=== PATIENT | female | born 1955 | race Caucasian/White ===

== ENCOUNTER → 2016-06-26 | Outpatient (CLI) | payer BC, OTHER ==
[~2016-06-26] MED LIST: ATEN25TA OR; CALCIUM/VITAMIN D PO; FIBER THERAPY PO; FISH; FISHCAP PO; HYDR25TA6 OR; MAGN500T2 OR; MAGNESIUM; MAGNESIUM PO; MULTIVIT PO; POTA99TA OR; PYRIDOXINE PO; VIT; VITA500T OR; VITACAP31 PO; VITAMIN B 12 PO; VITAMIN D; VITAMIN E PO
[2016-06-26 12:00] LABS: BASO % 0.4 % (0.0-1.0); EOS # 0.3 K/mm3 (0.0-0.50); EOS % 4.2 % (0.0-3.0); LARGE UNSTAINED CELL # 0.1 K/mm3 (0.0-0.4); LARGE UNSTAINED CELL % 1.9 % (0.0-4.0); LYMPH # 1.8 K/mm3 (1.5-4.5); LYMPH % 22.7 % (24.0-44.0); MEAN CORPUSCULAR HEMOGLOBIN 29.6 pg (27.0-33.0); MEAN CORPUSCULAR VOLUME 89.6 fl (80.0-96.0); MONO # 0.4 K/mm3 (0.0-0.8); MONO % 5.5 % (0.0-5.0); NEUTROPHILS # 4.6 K/mm3 (1.8-7.7); NEUTROPHILS % 65.3 % (36.0-66.0); PLATELET COUNT, AUTOMATED 224 k/mm3 (150-450); RED CELL DISTRIBUTION WIDTH 12.4 % (11.5-14.5); WHITE BLOOD COUNT 7.1 K/mm3 (4.0-10.0)
[2016-06-26 12:44] LABS: ALBUMIN/GLOBULIN RATIO 1.43 (1.00-1.93); BILIRUBIN,TOTAL 0.6 MG/DL (0.2-1.0); CALCIUM LEVEL 8.9 MG/DL (8.8-10.2); CREATININE FOR GFR 1.44 MG/DL (0.55-1.02); GLOMERULAR FILTRATION RATE 39.1 (>45); POTASSIUM SERUM 4.8 MEQ/L (3.5-5.1); TOTAL PROTEIN 6.8 GM/DL (6.4-8.2)
== END ==
LOC: M SMT 09:12
PROVIDERS: ATTEND Family Medicine
DX: I10 Essential (primary) hypertension (principal); E78.5 Hyperlipidemia, unspecified; K21.9 Gastro-esophageal reflux disease without esophagitis

== ENCOUNTER → 2016-07-05 | Outpatient (CLI) | payer BC, OTHER ==
--- NOTE | 2016-07-05 11:44 | REP ---
URINARY TRACT SONOGRAPHY: HISTORY: Chronic kidney disease stage III. Comparison sonography April 12, 2012. This was a right upper quadrant sonogram. FINDINGS: Scanning at the level of the urinary bladder shows that it is empty at the time of scanning. Renal cortical echogenicity pattern is normal and renal contours are smooth bilaterally. There is some increased renal sinus fat bilaterally. No hydronephrosis is seen on either side. No mass, cyst or calculus is seen. Right kidney measures 10.0 x 4.1 x 3.9 cm. Left renal dimensions are 10.1 x 4.9 x 4.7 cm. IMPRESSION: No significant abnormality. Signed by Ion Sabillon MD 07/05/2016 02:37 P
== END ==
LOC: M RAD 09:33
PROVIDERS: ATTEND Physician Assistant
DX: N18.3 Chronic kidney disease, stage 3 (moderate) (principal)

== ENCOUNTER → 2016-07-14 | Outpatient (CLI) | payer BC, OTHER ==
[2016-07-14 11:33] LABS: CREATININE FOR GFR 1.18 MG/DL (0.55-1.02); GLOMERULAR FILTRATION RATE 49.2 (>45); POTASSIUM SERUM 4.4 MEQ/L (3.5-5.1)
== END ==
LOC: M LAB 10:11
PROVIDERS: ATTEND Physician Assistant
DX: N18.3 Chronic kidney disease, stage 3 (moderate) (principal)

== ENCOUNTER → 2016-10-05 | Outpatient (CLI) | payer BC, OTHER ==
[2016-10-05 11:02] LABS: BASO # 0.1 K/mm3 (0.0-0.2); BASO % 1.6 % (0.0-1.0); EOS # 0.2 K/mm3 (0.0-0.50); EOS % 3.3 % (0.0-3.0); LARGE UNSTAINED CELL # 0.1 K/mm3 (0.0-0.4); LARGE UNSTAINED CELL % 1.8 % (0.0-4.0); LYMPH # 1.5 K/mm3 (1.5-4.5); LYMPH % 23.5 % (24.0-44.0); MEAN CORPUSCULAR HEMOGLOBIN 29.6 pg (27.0-33.0); MEAN CORPUSCULAR HGB CONC 33.3 g/dl (32.0-36.5); MONO # 0.3 K/mm3 (0.0-0.8); MONO % 5.3 % (0.0-5.0); NEUTROPHILS # 3.9 K/mm3 (1.8-7.7); NEUTROPHILS % 64.5 % (36.0-66.0); PLATELET COUNT, AUTOMATED 182 k/mm3 (150-450); RED CELL DISTRIBUTION WIDTH 12.5 % (11.5-14.5)
[2016-10-05 11:38] LABS: CALCIUM LEVEL 9.5 MG/DL (8.8-10.2); CREATININE FOR GFR 1.15 MG/DL (0.55-1.02); GLOMERULAR FILTRATION RATE 50.7 (>45); MAGNESIUM LEVEL 2.6 MG/DL (1.8-2.4); POTASSIUM SERUM 5.1 MEQ/L (3.5-5.1)
== END ==
LOC: M LAB 10:13
PROVIDERS: ATTEND Family Medicine
DX: I12.9 Hypertensive chronic kidney disease with stage 1 through stage 4 chronic kidney disease, or unspecified chronic kidney disease (principal); N18.3 Chronic kidney disease, stage 3 (moderate); K21.9 Gastro-esophageal reflux disease without esophagitis; E78.5 Hyperlipidemia, unspecified

== ENCOUNTER → 2016-10-16 | Outpatient (CLI) | payer BC, OTHER ==
--- NOTE | 2016-10-16 09:32 | REP ---
Abdominal aorta ultrasound: Abdominal Aortic Measurements are as follows: Proximal 2.3 cm AP 2.4 cm TRV Renal Artery Level 1.6 cm AP 1.7 cm TRV Mid Aorta 1.5 cm AP 1.7 cm TRV Distal Aorta 1.7 cm AP one 0.7 cm TRV R Iliac Artery 0.9 cm AP 1.0 cm TRV L Iliac Artery 0.8 cm AP 1.1 cm TRV The abdominal aortic measurements are normal. There is no abdominal aortic aneurysm. Signed by Dhaval Bryant MD 10/16/2016 09:24 A
--- NOTE | 2016-10-16 11:08 | REP ---
RENAL NUCLEAR SCAN WITH FLOW AND FUNCTION: Following the intravenous administration of 8.8 mCi of technetium-99m MAG 3 immediate flow images are obtained in the posterior projections showing fairly symmetrical perfusion bilaterally. Delayed renal function images are performed every minute for a period of 30 minutes in the posterior projection. Right kidney appears slightly smaller than the left. There is bilateral excretion with mild dilatation of the right renal pelvis. Split function is 45.5% on the left and 54.5% on right. Time to peak is 2 minutes on the left and 3 minutes on the right. Left kidney demonstrates T1/2 12.3 minutes and right kidney 17.3 minutes. Renal function curves are mildly shallow in their downward slopes. On postvoid images the mild dilatation of the right renal pelvis essentially resolves. There is mild postvoid residual in the urinary bladder after voiding. IMPRESSION: Mildly compromised renal function bilaterally. No evidence of urinary tract obstruction. Signed by Dhaval Dodson MD 10/16/2016 01:13 P
== END ==
LOC: M RAD 08:10
PROVIDERS: ATTEND Internal Medicine Nephrology
DX: N18.3 Chronic kidney disease, stage 3 (moderate) (principal); I15.0 Renovascular hypertension; I71.4 Abdominal aortic aneurysm, without rupture

== ENCOUNTER → 2016-12-14 | Outpatient (REF) | payer OTHER, BC ==
[2016-12-14 14:42] LABS: BACTERIA, URINE NONE SEEN; HYALINE CAST, URINE NONE SEEN /lpf (0-1); MICROSCOPIC EXAM PERFORMED; RBC, URINE NONE SEEN /hpf (0-3); SQUAMOUS EPITHELIAL CELL URINE SMALL AMOUNT /hpf (SMALL AMT); WBC, URINE NONE SEEN /hpf (0-3)
== END ==
LOC: M LAB REF 13:05
PROVIDERS: ATTEND Internal Medicine Nephrology
DX: N18.3 Chronic kidney disease, stage 3 (moderate) (principal)

== ENCOUNTER → 2017-02-28 | Outpatient (CLI) | payer BC, OTHER | LOC: M LAB 10:03 | PROVIDERS: ATTEND Family Medicine | DX: E78.00 Pure hypercholesterolemia, unspecified (principal) ==

== ENCOUNTER → 2017-04-23 | Outpatient (CLI) | payer BC, OTHER ==
[2017-04-23 10:15] LABS: BASO % 0.3 % (0.0-1.0); EOS # 0.1 10^3/uL (0.0-0.50); EOS % 1.6 % (0.0-3.0); HEMATOCRIT 36.4 % (36.0-47.0); HEMOGLOBIN 12.2 g/dl (12.0-16.0); IMMATURE GRANULOCYTE % 0.2 % (0-0); LYMPH # 1.6 10^3/uL (1.5-4.5); LYMPH % 25.7 % (24.0-44.0); MEAN CORPUSCULAR HEMOGLOBIN 28.6 pg (27.0-33.0); MEAN CORPUSCULAR HGB CONC 33.5 g/dl (32.0-36.5); MEAN CORPUSCULAR VOLUME 85.2 fl (80.0-96.0); MONO # 0.5 10^3/uL (0.0-0.8); MONO % 7.4 % (0.0-5.0); NEUTROPHILS # 3.9 10^3/uL (1.8-7.7); NEUTROPHILS % 64.8 % (36.0-66.0); PLATELET COUNT, AUTOMATED 168 10^3/uL (150-450); RED BLOOD COUNT 4.27 10^6/uL (4.00-5.40); RED CELL DISTRIBUTION WIDTH 12.9 % (11.5-14.5); WHITE BLOOD COUNT 6.1 10^3/uL (4.0-10.0)
[2017-04-23 10:52] LABS: ALBUMIN 4.1 GM/DL (3.2-5.2); ALBUMIN/GLOBULIN RATIO 1.46 (1.00-1.93); ALKALINE PHOSPHATASE 75 U/L (45-117); ALT/SGPT 21 U/L (12-78); ANION GAP 8 MEQ/L (8-16); AST/SGOT 19 U/L (7-37); BILIRUBIN,TOTAL 0.6 MG/DL (0.2-1.0); BLOOD UREA NITROGEN 13 MG/DL (7-18); CALCIUM LEVEL 9.3 MG/DL (8.8-10.2); CARBON DIOXIDE LEVEL 30 MEQ/L (21-32); CHLORIDE LEVEL 102 MEQ/L (98-107); CHOLESTEROL LEVEL 143 MG/DL (<200); CHOLESTEROL RISK RATIO 2.014 (<5); CREATININE FOR GFR 1.03 MG/DL (0.55-1.30); GLOMERULAR FILTRATION RATE 57.4 (>45); GLUCOSE, FASTING 93 MG/DL (70-100); HDL CHOLESTEROL 71 MG/DL (>40); LDL CHOLESTEROL 58.8 MG/DL (<100); NON-HDL-C 72 MG/DL; POTASSIUM SERUM 4.6 MEQ/L (3.5-5.1); SODIUM LEVEL 140 MEQ/L (136-145); TOTAL PROTEIN 6.9 GM/DL (6.4-8.2); TRIGLYCERIDES LEVEL 66 MG/DL (<150)
== END ==
LOC: M LAB 09:23
DX: I12.9 Hypertensive chronic kidney disease with stage 1 through stage 4 chronic kidney disease, or unspecified chronic kidney disease (principal)

== ENCOUNTER → 2017-10-24 | Outpatient (CLI) | payer BC, OTHER ==
[2017-10-24 10:26] LABS: ALBUMIN 4.1 GM/DL (3.2-5.2); ALBUMIN/GLOBULIN RATIO 1.52 (1.00-1.93); ALKALINE PHOSPHATASE 86 U/L (45-117); ALT/SGPT 31 U/L (12-78); ANION GAP 7 MEQ/L (8-16); AST/SGOT 27 U/L (7-37); BILIRUBIN,TOTAL 0.7 MG/DL (0.2-1.0); BLOOD UREA NITROGEN 16 MG/DL (7-18); CALCIUM LEVEL 8.8 MG/DL (8.8-10.2); CARBON DIOXIDE LEVEL 32 MEQ/L (21-32); CHLORIDE LEVEL 102 MEQ/L (98-107); CREATININE FOR GFR 1.14 MG/DL (0.55-1.30); GLOMERULAR FILTRATION RATE 51.1 (>45); GLUCOSE, FASTING 89 MG/DL (70-100); POTASSIUM SERUM 4.2 MEQ/L (3.5-5.1); SODIUM LEVEL 141 MEQ/L (136-145); TOTAL PROTEIN 6.8 GM/DL (6.4-8.2)
== END ==
LOC: M LAB 09:17
DX: Z13.29 Encounter for screening for other suspected endocrine disorder (principal)
CPT/HCPCS: 84443

== ENCOUNTER → 2017-11-05 | Outpatient (CLI) | payer BC, OTHER ==
[2017-11-05 14:41] LABS: CHOLESTEROL LEVEL 166 MG/DL (<200); CHOLESTEROL RISK RATIO 1.824 (<5); HDL CHOLESTEROL 91 MG/DL (>40); NON-HDL-C 75 MG/DL; TRIGLYCERIDES LEVEL 60 MG/DL (<150)
== END ==
LOC: M SMT 10:05
DX: E78.00 Pure hypercholesterolemia, unspecified (principal)
CPT/HCPCS: 80061

== ENCOUNTER → 2018-01-23 | Outpatient (CLI) | payer BC, OTHER ==
[2018-01-23 12:31] LABS: BASO % 0.2 % (0.0-1.0); EOS # 0.1 10^3/uL (0.0-0.50); EOS % 1.7 % (0.0-3.0); HEMATOCRIT 38.5 % (36.0-47.0); HEMOGLOBIN 12.7 g/dl (12.0-15.5); IMMATURE GRANULOCYTE % 0.2 % (0-3.0); LYMPH # 1.5 10^3/uL (1.5-4.5); LYMPH % 27.9 % (24.0-44.0); MEAN CORPUSCULAR HEMOGLOBIN 29.2 pg (27.0-33.0); MEAN CORPUSCULAR VOLUME 88.5 fl (80.0-96.0); MONO # 0.5 10^3/uL (0.0-0.8); MONO % 8.7 % (0.0-5.0); NEUTROPHILS # 3.3 10^3/uL (1.8-7.7); NEUTROPHILS % 61.3 % (36.0-66.0); PLATELET COUNT, AUTOMATED 175 10^3/uL (150-450); RED BLOOD COUNT 4.35 10^6/uL (4.00-5.40); RED CELL DISTRIBUTION WIDTH 12.5 % (11.5-14.5); WHITE BLOOD COUNT 5.4 10^3/uL (4.0-10.0)
[2018-01-23 12:56] LABS: ALBUMIN 4.3 GM/DL (3.2-5.2); ALBUMIN/GLOBULIN RATIO 1.48 (1.00-1.93); ALKALINE PHOSPHATASE 84 U/L (45-117); ALT/SGPT 30 U/L (12-78); ANION GAP 9 MEQ/L (8-16); AST/SGOT 23 U/L (7-37); BILIRUBIN,TOTAL 0.8 MG/DL (0.2-1.0); BLOOD UREA NITROGEN 15 MG/DL (7-18); CALCIUM LEVEL 9.2 MG/DL (8.8-10.2); CARBON DIOXIDE LEVEL 28 MEQ/L (21-32); CHLORIDE LEVEL 101 MEQ/L (98-107); CHOLESTEROL LEVEL 159 MG/DL (<200); CHOLESTEROL RISK RATIO 1.962 (<5); CREATININE FOR GFR 1.15 MG/DL (0.55-1.30); GLOMERULAR FILTRATION RATE 50.6 (>45); GLUCOSE, FASTING 98 MG/DL (70-100); HDL CHOLESTEROL 81 MG/DL (>40); LDL CHOLESTEROL 65 MG/DL (<100); NON-HDL-C 78 MG/DL; POTASSIUM SERUM 4.9 MEQ/L (3.5-5.1); SODIUM LEVEL 138 MEQ/L (136-145); TOTAL PROTEIN 7.2 GM/DL (6.4-8.2); TRIGLYCERIDES LEVEL 67 MG/DL (<150)
== END ==
LOC: M SMT 08:04
DX: I12.9 Hypertensive chronic kidney disease with stage 1 through stage 4 chronic kidney disease, or unspecified chronic kidney disease (principal); E78.00 Pure hypercholesterolemia, unspecified
CPT/HCPCS: 80053

== ENCOUNTER → 2018-05-02 | Outpatient (CLI) | payer BC, OTHER ==
[2018-05-02 14:05] LABS: BASO % 0.5 % (0.0-1.0); EOS # 0.1 10^3/uL (0.0-0.50); EOS % 1.5 % (0.0-3.0); HEMATOCRIT 39.2 % (36.0-47.0); HEMOGLOBIN 13.1 g/dl (12.0-15.5); LYMPH # 1.5 10^3/uL (1.5-4.5); LYMPH % 25.9 % (24.0-44.0); MEAN CORPUSCULAR HEMOGLOBIN 29.4 pg (27.0-33.0); MEAN CORPUSCULAR HGB CONC 33.4 g/dl (32.0-36.5); MEAN CORPUSCULAR VOLUME 87.9 fl (80.0-96.0); MONO # 0.4 10^3/uL (0.0-0.8); MONO % 7.4 % (0.0-5.0); NEUTROPHILS # 3.8 10^3/uL (1.8-7.7); NEUTROPHILS % 64.4 % (36.0-66.0); PLATELET COUNT, AUTOMATED 208 10^3/uL (150-450); RED BLOOD COUNT 4.46 10^6/uL (4.00-5.40); WHITE BLOOD COUNT 5.8 10^3/uL (4.0-10.0)
[2018-05-02 14:11] LABS: CREATININE FOR GFR 1.2 MG/DL (0.55-1.30); POTASSIUM SERUM 4.3 MEQ/L (3.5-5.1)
[2018-05-02 14:12] LABS: ALBUMIN 4.5 GM/DL (3.2-5.2); BILIRUBIN,TOTAL 0.7 MG/DL (0.2-1.0); CHOLESTEROL RISK RATIO 1.875 (<5); TOTAL PROTEIN 7.2 GM/DL (6.4-8.2)
[2018-05-02 14:29] LABS: HEMOGLOBIN A1c 5.4 %
== END ==
LOC: M SMT 08:48
PROVIDERS: ATTEND Physician Assistant
DX: I12.9 Hypertensive chronic kidney disease with stage 1 through stage 4 chronic kidney disease, or unspecified chronic kidney disease (principal); N18.9 Chronic kidney disease, unspecified

== ENCOUNTER → 2018-05-10 | Outpatient (CLI) | payer BC, OTHER ==
--- NOTE | 2018-05-10 14:22 | REP ---
PA and lateral chest: There are no comparisons. The lung dale are clear. The cardiac size is normal. The malcom, mediastinum, and skeletal structures are unremarkable. Impression: Negative PA and lateral chest. Electronically Signed by Dhaval Bryant MD 05/10/2018 02:12 P
== END ==
LOC: M SMT 12:06
PROVIDERS: ATTEND Family Medicine
DX: J20.9 Acute bronchitis, unspecified (principal)

== ENCOUNTER 2018-06-11 19:40 | Emergency (ER) | payer BC, OTHER ==
[2018-06-11] MEDS ORDERED: EQL50TAB4 PO (19:50)
[2018-06-11] MEDS ORDERED: AMLO10TA5 PO (19:50)
[2018-06-11] MEDS ORDERED: ROSU20TA4 PO (19:50)
[2018-06-11] MEDS ORDERED: ACETAMINOPHEN 325 MG TAB PO ONE (21:00)
[2018-06-11 21:28] LABS: INFLUENZA A AMPLIFICATION NEGATIVE (NEGATIVE); INFLUENZA B AMPLIFICATION NEGATIVE (NEGATIVE)
[2018-06-11 22:05] VITALS: BP 138/72
--- NOTE | 2018-06-12 02:31 | REP ---
Clinical: Cough . Comparison: 05/10/2018 . Technique: PA and lateral. Findings: The mediastinum and cardiac silhouette are normal. The lung dale are clear and without acute consolidation, effusion, or pneumothorax. The skeletal structures are intact and normal. Impression: 1. No acute cardiopulmonary process. Electronically Signed by Henrik Rosales MD 06/12/2018 02:23 A
== END 2018-06-11 22:21 | disposition home or self-care (01) ==
LOC: M ED 19:40
DX: J20.9 Acute bronchitis, unspecified (principal); R11.0 Nausea; I12.9 Hypertensive chronic kidney disease with stage 1 through stage 4 chronic kidney disease, or unspecified chronic kidney disease; N18.3 Chronic kidney disease, stage 3 (moderate); N17.9 Acute kidney failure, unspecified; G43.909 Migraine, unspecified, not intractable, without status migrainosus; K21.9 Gastro-esophageal reflux disease without esophagitis; Z87.891 Personal history of nicotine dependence; Z88.3 Allergy status to other anti-infective agents; Z79.899 Other long term (current) drug therapy

== ENCOUNTER → 2018-08-01 | Outpatient (CLI) | payer BC, OTHER ==
[~2018-08-01] MED LIST changes: +AMLO10TA5 PO; +ROSU20TA4 PO; +ZINC1TAB2 PO
[2018-08-01 13:32] LABS: BASO % 0.5 % (0.0-1.0); EOS # 0.1 10^3/uL (0.0-0.50); EOS % 1.8 % (0.0-3.0); HEMATOCRIT 40.1 % (36.0-47.0); LYMPH # 1.6 10^3/uL (1.5-4.5); LYMPH % 28.7 % (24.0-44.0); MEAN CORPUSCULAR HEMOGLOBIN 29.2 pg (27.0-33.0); MEAN CORPUSCULAR HGB CONC 32.4 g/dl (32.0-36.5); MEAN CORPUSCULAR VOLUME 90.1 fl (80.0-96.0); MONO # 0.5 10^3/uL (0.0-0.8); MONO % 8.3 % (0.0-5.0); NEUTROPHILS # 3.4 10^3/uL (1.8-7.7); NEUTROPHILS % 60.5 % (36.0-66.0); PLATELET COUNT, AUTOMATED 185 10^3/uL (150-450); RED BLOOD COUNT 4.45 10^6/uL (4.00-5.40); WHITE BLOOD COUNT 5.5 10^3/uL (4.0-10.0)
[2018-08-01 13:38] LABS: CALCIUM LEVEL 9.4 MG/DL (8.8-10.2); CREATININE FOR GFR 1.17 MG/DL (0.55-1.30); GLOMERULAR FILTRATION RATE 49.4 (>45); POTASSIUM SERUM 4.7 MEQ/L (3.5-5.1)
== END ==
LOC: M SMT 08:49
PROVIDERS: ATTEND Family Medicine
DX: I12.9 Hypertensive chronic kidney disease with stage 1 through stage 4 chronic kidney disease, or unspecified chronic kidney disease (principal)

== ENCOUNTER → 2018-12-24 | Outpatient (REF) | payer OTHER ==
[~2018-12-24] MED LIST changes: -ROSU20TA4 PO; +ROSU20TA5 PO
[2018-12-24 19:28] LABS: CALCIUM LEVEL 9.1 MG/DL (8.8-10.2); CREATININE FOR GFR 1.15 MG/DL (0.55-1.30); GLOMERULAR FILTRATION RATE 50.4 (>45); PHOSPHORUS LEVEL 3.3 MG/DL (2.5-4.9); POTASSIUM SERUM 4.3 MEQ/L (3.5-5.1)
== END ==
LOC: M LAB REF 17:12
PROVIDERS: ATTEND Nurse Practitioner Family
DX: N18.3 Chronic kidney disease, stage 3 (moderate) (principal)

== ENCOUNTER → 2019-01-30 | Outpatient (CLI) | payer OTHER ==
[2019-01-30 13:40] LABS: BASO % 0.2 % (0.0-1.0); EOS # 0.1 10^3/uL (0.0-0.5); EOS % 2.2 % (0.0-3.0); HEMATOCRIT 39.8 % (36.0-47.0); LYMPH # 1.5 10^3/uL (1.5-5.0); LYMPH % 27.5 % (24.0-44.0); MEAN CORPUSCULAR HGB CONC 32.7 g/dl (32.0-36.5); MEAN CORPUSCULAR VOLUME 88.8 fl (80.0-96.0); MONO # 0.5 10^3/uL (0.0-0.8); MONO % 9.5 % (0.0-5.0); NEUTROPHILS # 3.4 10^3/uL (1.5-8.5); NEUTROPHILS % 60.4 % (36.0-66.0); PLATELET COUNT, AUTOMATED 211 10^3/uL (150-450); RED BLOOD COUNT 4.48 10^6/uL (4.00-5.40); WHITE BLOOD COUNT 5.6 10^3/uL (4.0-10.0)
[2019-01-30 13:49] LABS: ALBUMIN 4.1 GM/DL (3.2-5.2); BILIRUBIN,TOTAL 0.6 MG/DL (0.2-1.0); CALCIUM LEVEL 8.9 MG/DL (8.8-10.2); CHOLESTEROL RISK RATIO 1.946 (<5); CREATININE FOR GFR 1.27 MG/DL (0.55-1.30); POTASSIUM SERUM 4.7 MEQ/L (3.5-5.1); TOTAL PROTEIN 6.9 GM/DL (6.4-8.2)
== END ==
LOC: M SMT 08:35
PROVIDERS: ATTEND Physician Assistant
DX: N18.3 Chronic kidney disease, stage 3 (moderate) (principal)

== ENCOUNTER → 2019-07-24 | Outpatient (CLI) | payer OTHER ==
[2019-07-24 14:40] LABS: BASO % 0.4 % (0.0-1.0); EOS % 0.6 % (0.0-3.0); HEMOGLOBIN 13.8 g/dl (12.0-15.5); LYMPH # 1.1 10^3/uL (1.5-5.0); LYMPH % 21.2 % (24.0-44.0); MEAN CORPUSCULAR HEMOGLOBIN 29.2 pg (27.0-33.0); MEAN CORPUSCULAR HGB CONC 33.7 g/dl (32.0-36.5); MEAN CORPUSCULAR VOLUME 86.9 fl (80.0-96.0); MONO # 0.5 10^3/uL (0.0-0.8); MONO % 9.8 % (0.0-5.0); NEUTROPHILS # 3.6 10^3/uL (1.5-8.5); NEUTROPHILS % 67.8 % (36.0-66.0); PLATELET COUNT, AUTOMATED 186 10^3/uL (150-450); RED BLOOD COUNT 4.72 10^6/uL (4.00-5.40); WHITE BLOOD COUNT 5.3 10^3/uL (4.0-10.0)
[2019-07-24 14:50] LABS: ALBUMIN 4.6 GM/DL (3.2-5.2); BILIRUBIN,TOTAL 0.5 MG/DL (0.2-1.0); CALCIUM LEVEL 9.9 MG/DL (8.8-10.2); CHOLESTEROL RISK RATIO 1.906 (<5); CREATININE FOR GFR 1.17 MG/DL (0.55-1.30); GLOMERULAR FILTRATION RATE 49.3 (>45); POTASSIUM SERUM 4.6 MEQ/L (3.5-5.1); THYROID STIMULATING HORMONE 2.3 uIU/ML (0.358-3.740); TOTAL 25(OH) VITAMIN D 39.5 NG/ML (30.0-100.0); TOTAL PROTEIN 7.4 GM/DL (6.4-8.2)
[2019-07-24 20:48] LABS: HEMOGLOBIN A1c 5.9 %
== END ==
LOC: M PLALAB 10:52
PROVIDERS: ATTEND Family Medicine
DX: E78.00 Pure hypercholesterolemia, unspecified (principal); E55.9 Vitamin D deficiency, unspecified; N18.3 Chronic kidney disease, stage 3 (moderate)

== ENCOUNTER → 2020-02-10 | Outpatient (CLI) | payer OTHER ==
[~2020-02-10] MED LIST changes: -AMLO10TA5 PO; +AMLO1TAB25 PO
[2020-02-10 10:24] LABS: BASO % 0.2 % (0.0-1.0); EOS # 0.1 10^3/uL (0.0-0.5); EOS % 2.2 % (0.0-3.0); HEMOGLOBIN 13.2 g/dl (12.0-15.5); LYMPH # 1.1 10^3/uL (1.5-5.0); LYMPH % 25.5 % (24.0-44.0); MEAN CORPUSCULAR HEMOGLOBIN 28.6 pg (27.0-33.0); MEAN CORPUSCULAR VOLUME 86.6 fl (80.0-96.0); MONO # 0.5 10^3/uL (0.0-0.8); MONO % 10.5 % (0.0-5.0); NEUTROPHILS # 2.7 10^3/uL (1.5-8.5); NEUTROPHILS % 61.4 % (36.0-66.0); PLATELET COUNT, AUTOMATED 193 10^3/uL (150-450); RED BLOOD COUNT 4.62 10^6/uL (4.00-5.40); WHITE BLOOD COUNT 4.5 10^3/uL (4.0-10.0)
[2020-02-10 11:14] LABS: ALBUMIN 4.2 GM/DL (3.2-5.2); BILIRUBIN,TOTAL 0.6 MG/DL (0.2-1.0); CALCIUM LEVEL 9.3 MG/DL (8.8-10.2); CHOLESTEROL RISK RATIO 2.054 (<5); CREATININE FOR GFR 1.19 MG/DL (0.55-1.30); FREE T4 1.86 NG/DL (0.76-1.46); GLOMERULAR FILTRATION RATE 48.3 (>45); POTASSIUM SERUM 4.5 MEQ/L (3.5-5.1); THYROID STIMULATING HORMONE 3.69 uIU/ML (0.358-3.740); TOTAL PROTEIN 7.3 GM/DL (6.4-8.2)
[2020-02-10 12:13] LABS: HEMOGLOBIN A1c 5.5 %
== END ==
LOC: M PLALAB 08:20
PROVIDERS: ATTEND Physician Assistant
DX: E78.00 Pure hypercholesterolemia, unspecified (principal); N18.30 Chronic kidney disease, stage 3 unspecified; R73.01 Impaired fasting glucose

== ENCOUNTER → 2020-04-08 | Outpatient (CLI) | payer OTHER ==
[2020-04-08 14:13] LABS: CALCIUM LEVEL 9.4 MG/DL (8.8-10.2); CREATININE FOR GFR 1.16 MG/DL (0.55-1.30); GLOMERULAR FILTRATION RATE 49.6 (>45); POTASSIUM SERUM 5.2 MEQ/L (3.5-5.1)
== END ==
LOC: M PLALAB 09:00
PROVIDERS: ATTEND Internal Medicine Nephrology
DX: N18.30 Chronic kidney disease, stage 3 unspecified (principal)

== ENCOUNTER → 2020-05-12 | Outpatient (CLI) | payer OTHER ==
[2020-05-12 13:40] LABS: BASO % 0.2 % (0.0-1.0); EOS # 0.1 10^3/uL (0.0-0.5); EOS % 1.6 % (0.0-3.0); HEMATOCRIT 38.2 % (36.0-47.0); HEMOGLOBIN 12.3 g/dl (12.0-15.5); LYMPH % 23.9 % (24.0-44.0); MEAN CORPUSCULAR HEMOGLOBIN 28.4 pg (27.0-33.0); MEAN CORPUSCULAR HGB CONC 32.2 g/dl (32.0-36.5); MEAN CORPUSCULAR VOLUME 88.2 fl (80.0-96.0); MONO # 0.5 10^3/uL (0.0-0.8); MONO % 11.5 % (2.0-8.0); NEUTROPHILS # 2.7 10^3/uL (1.5-8.5); NEUTROPHILS % 62.3 % (36.0-66.0); PLATELET COUNT, AUTOMATED 177 10^3/uL (150-450); RED BLOOD COUNT 4.33 10^6/uL (4.00-5.40); WHITE BLOOD COUNT 4.4 10^3/uL (4.0-10.0)
[2020-05-12 13:48] LABS: BILIRUBIN,TOTAL 0.6 MG/DL (0.2-1.0); CALCIUM LEVEL 9.1 MG/DL (8.8-10.2); CHOLESTEROL RISK RATIO 2.419 (<5); CREATININE FOR GFR 1.24 MG/DL (0.55-1.30); GLOMERULAR FILTRATION RATE 45.9 (>45); POTASSIUM SERUM 5.2 MEQ/L (3.5-5.1); TOTAL PROTEIN 7.1 GM/DL (6.4-8.2)
[2020-05-12 14:13] LABS: TOTAL 25(OH) VITAMIN D 39.4 NG/ML (30.0-100.0)
[2020-05-12 15:05] LABS: HEMOGLOBIN A1c 5.5 %
== END ==
LOC: M PLALAB 10:14
PROVIDERS: ATTEND Family Medicine
DX: I12.9 Hypertensive chronic kidney disease with stage 1 through stage 4 chronic kidney disease, or unspecified chronic kidney disease (principal); R73.01 Impaired fasting glucose; E78.00 Pure hypercholesterolemia, unspecified; K21.9 Gastro-esophageal reflux disease without esophagitis; E55.9 Vitamin D deficiency, unspecified

== ENCOUNTER → 2020-05-24 | Outpatient (CLI) | payer BC ==
--- NOTE | 2020-05-24 11:59 | DEXAMM ---
INDICATION: E55.9 VIT D DEFICIENCY,CK OSTEOPOROSIS. COMPARISON: None. TECHNIQUE: Bone density was measured using dual-energy x-ray absorptiometry (DEXA). FINDINGS: AP SPINE L1-L4 BMD 1.275 g/cm2 Young Adult T-Score 0.7 Age Matched Z-Score 2.3. LT FEMUR, TOTAL BMD 0.872 g/cm2 Young Adult T-Score -1.1 Age Matched Z-Score 0.2. LT NECK BMD 0.832 g/cm2 Young Adult T-Score -1.5 Age Matched Z-Score 0.1. RT FEMUR, TOTAL BMD 0.837 g/cm2 Young Adult T-Score -1.4 Age Matched Z-Score 0.0. RT NECK BMD 0.811 g/cm2 Young Adult T-Score -1.6 Age Matched Z-Score -0.1. IMPRESSION: There is normal bone density of the spine. There is low bone density of the left hip. There is low bone density of the right hip. FOLLOW-UP: Recommendation for the next bone density exam: 2 years. <Electronically signed by Dhaval Dodson > 05/24/20 [id number]
== END ==
LOC: M WHC 08:21
PROVIDERS: ATTEND Physician Assistant
DX: E55.9 Vitamin D deficiency, unspecified (principal); M85.851 Other specified disorders of bone density and structure, right thigh; M85.852 Other specified disorders of bone density and structure, left thigh

== ENCOUNTER → 2020-08-13 | Outpatient (CLI) | payer BC ==
[2020-08-13 10:29] LABS: BASO % 0.3 % (0.0-1.0); EOS # 0.1 10^3/uL (0.0-0.5); EOS % 2.3 % (0.0-3.0); HEMATOCRIT 37.3 % (36.0-47.0); MEAN CORPUSCULAR HEMOGLOBIN 28.4 pg (27.0-33.0); MEAN CORPUSCULAR HGB CONC 32.2 g/dl (32.0-36.5); MEAN CORPUSCULAR VOLUME 88.2 fl (80.0-96.0); MONO # 0.5 10^3/uL (0.0-0.8); MONO % 12.2 % (2.0-8.0); NEUTROPHILS # 2.3 10^3/uL (1.5-8.5); NEUTROPHILS % 58.9 % (36.0-66.0); PLATELET COUNT, AUTOMATED 177 10^3/uL (150-450); RED BLOOD COUNT 4.23 10^6/uL (4.00-5.40); WHITE BLOOD COUNT 3.9 10^3/uL (4.0-10.0)
[2020-08-13 10:59] LABS: ALBUMIN 3.9 GM/DL (3.2-5.2); BILIRUBIN,TOTAL 0.7 MG/DL (0.2-1.0); CALCIUM LEVEL 9.1 MG/DL (8.8-10.2); CREATININE FOR GFR 1.08 MG/DL (0.55-1.30); FREE T4 1.21 NG/DL (0.76-1.46); GLOMERULAR FILTRATION RATE 53.9 (>45); POTASSIUM SERUM 4.8 MEQ/L (3.5-5.1); THYROID STIMULATING HORMONE 2.73 uIU/ML (0.358-3.740); TOTAL PROTEIN 7.3 GM/DL (6.4-8.2)
[2020-08-13 11:01] LABS: TOTAL 25(OH) VITAMIN D 43.3 NG/ML (30.0-100.0)
[2020-08-13 11:16] LABS: HEMOGLOBIN A1c 5.1 %
== END ==
LOC: M PLALAB 07:54
PROVIDERS: ATTEND Physician Assistant
DX: I12.9 Hypertensive chronic kidney disease with stage 1 through stage 4 chronic kidney disease, or unspecified chronic kidney disease (principal); R73.01 Impaired fasting glucose; E78.00 Pure hypercholesterolemia, unspecified; N18.30 Chronic kidney disease, stage 3 unspecified; E55.9 Vitamin D deficiency, unspecified

== ENCOUNTER → 2020-10-01 | Outpatient (CLI) | payer BC ==
--- NOTE | 2020-10-01 09:14 | REPMRS ---
Patient History The patient states she had a clinical breast exam in August 2020. Patient is postmenopausal. Family history of breast cancer at age 86 in mother, liver cancer in father. No breast complaints today Patient signed the MRS sheet No covid vaccine Most recent mammos done @ [facility] Patient Identification Verified Digital Woman Screen Mammo: October 01, 2020 - Exam #: [id number] Bilateral CC and MLO view(s) were taken. Technologist: Estelita Cheng, Technologist Prior study comparison: September 01, 2019, bilateral digital mammo screening bilat, performed at [facility]. July 19, 2018, bilateral digital mammo screening bilat, performed at [facility]. June 20, 2017, bilateral digital mammo screening bilat, performed at [facility]. FINDINGS: There are scattered fibroglandular densities. The Volpara volumetric breast density category is:B. There has been no change in the appearance of the mammogram from the prior studies. There is a mild amount of scattered fibroglandular density which is fairly symmetric. There is no interval development of dominant mass, architectural distortion, or grouped microcalcification suggestive of malignancy. 3-D tomosynthesis shows no additional findings. Assessment: BI-RADS/ACR category 1 mammogram. Negative Mammogram. Recommendation Routine screening mammogram of both breasts in 1 year (for women over age 40). This patient's [facility] Lifetime Breast Cancer Risk is estimated at 11.5 %. This mammogram was interpreted with the aid of an FDA-approved computer-aided dectection system. Electronically Signed By: Jason Sabillon MD 10/01/20 0913
== END ==
LOC: M WHC 07:47
PROVIDERS: ATTEND Family Medicine
DX: Z12.31 Encounter for screening mammogram for malignant neoplasm of breast (principal)

== ENCOUNTER → 2020-11-08 | Outpatient (CLI) | payer BC, OTHER ==
[2020-11-08 10:54] LABS: BASO % 0.6 % (0.0-1.0); EOS # 0.1 10^3/uL (0.0-0.5); EOS % 2.8 % (0.0-3.0); HEMATOCRIT 38.4 % (36.0-47.0); HEMOGLOBIN 12.5 g/dl (12.0-15.5); LYMPH % 19.8 % (24.0-44.0); MEAN CORPUSCULAR HEMOGLOBIN 28.2 pg (27.0-33.0); MEAN CORPUSCULAR HGB CONC 32.6 g/dl (32.0-36.5); MEAN CORPUSCULAR VOLUME 86.7 fl (80.0-96.0); MONO # 0.6 10^3/uL (0.0-0.8); MONO % 11.2 % (2.0-8.0); NEUTROPHILS # 3.3 10^3/uL (1.5-8.5); NEUTROPHILS % 65.6 % (36.0-66.0); PLATELET COUNT, AUTOMATED 208 10^3/uL (150-450); RED BLOOD COUNT 4.43 10^6/uL (4.00-5.40); WHITE BLOOD COUNT 5.1 10^3/uL (4.0-10.0)
[2020-11-08 11:26] LABS: ALBUMIN 3.9 GM/DL (3.2-5.2); BILIRUBIN,TOTAL 0.6 MG/DL (0.2-1.0); CALCIUM LEVEL 8.9 MG/DL (8.8-10.2); CHOLESTEROL RISK RATIO 2.318 (<5); CREATININE FOR GFR 1.07 MG/DL (0.55-1.30); GLOMERULAR FILTRATION RATE 54.5 (>45); POTASSIUM SERUM 4.5 MEQ/L (3.5-5.1); TOTAL PROTEIN 7.4 GM/DL (6.4-8.2)
[2020-11-08 11:46] LABS: HEMOGLOBIN A1c 5.6 %
== END ==
LOC: M PLALAB 08:20
PROVIDERS: ATTEND Family Medicine
DX: I12.9 Hypertensive chronic kidney disease with stage 1 through stage 4 chronic kidney disease, or unspecified chronic kidney disease (principal); R73.01 Impaired fasting glucose; E78.00 Pure hypercholesterolemia, unspecified

== ENCOUNTER → 2021-04-01 | Outpatient (CLI) | payer BC, OTHER ==
[2021-04-01 10:44] LABS: CREATININE FOR GFR 1.23 MG/DL (0.55-1.30); GLOMERULAR FILTRATION RATE 46.2 (>45); POTASSIUM SERUM 4.8 MEQ/L (3.5-5.1)
== END ==
LOC: M PLALAB 08:07
PROVIDERS: ATTEND Internal Medicine Nephrology
DX: N18.30 Chronic kidney disease, stage 3 unspecified (principal)

== ENCOUNTER 2021-04-18 02:51 | Emergency (ER) | payer BC, OTHER ==
[~2021-04-18] VITALS: Ht 162.6 cm; Wt 76.5 kg
[2021-04-18 02:54] VITALS: BP 160/78
== END 2021-04-18 03:45 | disposition left against medical advice (07) ==
LOC: M ED 02:51
DX: Z53.29 Procedure and treatment not carried out because of patient's decision for other reasons (principal)

== ENCOUNTER → 2021-04-18 | Outpatient (CLI) | payer BC, OTHER ==
[2021-04-18 13:53] LABS: BASO % 0.2 % (0.0-1.0); EOS % 0.2 % (0.0-3.0); HEMATOCRIT 38.1 % (36.0-47.0); HEMOGLOBIN 12.7 g/dl (12.0-15.5); LYMPH # 0.9 10^3/uL (1.5-5.0); LYMPH % 16.3 % (24.0-44.0); MEAN CORPUSCULAR HEMOGLOBIN 28.1 pg (27.0-33.0); MEAN CORPUSCULAR HGB CONC 33.3 g/dl (32.0-36.5); MEAN CORPUSCULAR VOLUME 84.3 fl (80.0-96.0); MONO # 0.5 10^3/uL (0.0-0.8); MONO % 9.7 % (2.0-8.0); NEUTROPHILS # 3.9 10^3/uL (1.5-8.5); NEUTROPHILS % 73.2 % (36.0-66.0); PLATELET COUNT, AUTOMATED 238 10^3/uL (150-450); RED BLOOD COUNT 4.52 10^6/uL (4.00-5.40); WHITE BLOOD COUNT 5.3 10^3/uL (4.0-10.0)
[2021-04-18 14:38] LABS: CALCIUM LEVEL 9.5 MG/DL (8.8-10.2); CREATININE FOR GFR 1.07 MG/DL (0.55-1.30); GLOMERULAR FILTRATION RATE 54.3 (>45); POTASSIUM SERUM 4.4 MEQ/L (3.5-5.1)
== END ==
LOC: M PLALAB 11:06
PROVIDERS: ATTEND Nurse Practitioner Adult Health
DX: I12.9 Hypertensive chronic kidney disease with stage 1 through stage 4 chronic kidney disease, or unspecified chronic kidney disease (principal)

== ENCOUNTER → 2021-05-10 | Outpatient (CLI) | payer BC, OTHER ==
[2021-05-10 13:26] LABS: BASO % 0.2 % (0.0-1.0); EOS % 0.3 % (0.0-3.0); HEMATOCRIT 37.5 % (36.0-47.0); HEMOGLOBIN 12.3 g/dl (12.0-15.5); LYMPH # 0.8 10^3/uL (1.5-5.0); MEAN CORPUSCULAR HEMOGLOBIN 28.2 pg (27.0-33.0); MEAN CORPUSCULAR HGB CONC 32.8 g/dl (32.0-36.5); MONO # 0.9 10^3/uL (0.0-0.8); MONO % 8.3 % (2.0-8.0); NEUTROPHILS # 9.4 10^3/uL (1.5-8.5); NEUTROPHILS % 84.1 % (36.0-66.0); PLATELET COUNT, AUTOMATED 280 10^3/uL (150-450); RED BLOOD COUNT 4.36 10^6/uL (4.00-5.40); WHITE BLOOD COUNT 11.1 10^3/uL (4.0-10.0)
[2021-05-10 14:03] LABS: ALBUMIN 3.8 GM/DL (3.2-5.2); BILIRUBIN,TOTAL 0.5 MG/DL (0.2-1.0); CALCIUM LEVEL 9.2 MG/DL (8.8-10.2); CHOLESTEROL RISK RATIO 2.352 (<5); CREATININE FOR GFR 1.03 MG/DL (0.55-1.30); FREE T4 1.53 NG/DL (0.76-1.46); GLOMERULAR FILTRATION RATE 56.7 (>45); POTASSIUM SERUM 4.6 MEQ/L (3.5-5.1); THYROID STIMULATING HORMONE 1.53 uIU/ML (0.358-3.740)
[2021-05-10 18:39] LABS: HEMOGLOBIN A1c 5.7 %
== END ==
LOC: M PLALAB 10:37
PROVIDERS: ATTEND Physician Assistant
DX: Z00.00 Encounter for general adult medical examination without abnormal findings (principal)

== ENCOUNTER → 2021-05-26 | Outpatient (CLI) | payer BC, OTHER ==
[2021-05-26 17:31] LABS: BASO % 0.4 % (0.0-1.0); EOS % 0.4 % (0.0-3.0); HEMATOCRIT 37.7 % (36.0-47.0); HEMOGLOBIN 12.6 g/dl (12.0-15.5); LYMPH % 11.7 % (24.0-44.0); MEAN CORPUSCULAR HEMOGLOBIN 27.4 pg (27.0-33.0); MEAN CORPUSCULAR HGB CONC 33.4 g/dl (32.0-36.5); MONO # 0.7 10^3/uL (0.0-0.8); MONO % 8.2 % (2.0-8.0); NEUTROPHILS # 6.5 10^3/uL (1.5-8.5); NEUTROPHILS % 79.1 % (36.0-66.0); PLATELET COUNT, AUTOMATED 324 10^3/uL (150-450); WHITE BLOOD COUNT 8.2 10^3/uL (4.0-10.0)
[2021-05-26 17:35] LABS: CK-MB VALUE MASS 2.5 NG/ML (<3.6); MB/CK RELATIVE INDEX 1.88 (< OR =4)
[2021-05-26 18:26] LABS: ALBUMIN 4.3 GM/DL (3.2-5.2); BILIRUBIN,TOTAL 0.5 MG/DL (0.2-1.0); CALCIUM LEVEL 10.1 MG/DL (8.8-10.2); CREATININE FOR GFR 1.28 MG/DL (0.55-1.30); FREE T4 1.47 NG/DL (0.76-1.46); GLOMERULAR FILTRATION RATE 44.1 (>45); POTASSIUM SERUM 4.4 MEQ/L (3.5-5.1); THYROID STIMULATING HORMONE 1.4 uIU/ML (0.358-3.740); TOTAL PROTEIN 8.6 GM/DL (6.4-8.2)
== END ==
LOC: M LAB 15:49 → M RAD 15:49
PROVIDERS: ATTEND Nurse Practitioner Adult Health
DX: R00.0 Tachycardia, unspecified (principal)

== ENCOUNTER → 2021-06-13 | Outpatient (REF) | payer BC, OTHER | LOC: M LAB REF 16:57 | PROVIDERS: ATTEND Physician Assistant | DX: L01.00 Impetigo, unspecified (principal) ==

== ENCOUNTER → 2021-06-23 | Outpatient (CLI) | payer BC, OTHER ==
[2021-06-23 16:34] LABS: BASO % 0.5 % (0.0-1.0); EOS # 0.1 10^3/uL (0.0-0.5); EOS % 0.9 % (0.0-3.0); HEMOGLOBIN 13.5 g/dl (12.0-15.5); LYMPH # 1.1 10^3/uL (1.5-5.0); LYMPH % 12.6 % (24.0-44.0); MEAN CORPUSCULAR HEMOGLOBIN 28.2 pg (27.0-33.0); MEAN CORPUSCULAR HGB CONC 33.8 g/dl (32.0-36.5); MEAN CORPUSCULAR VOLUME 83.5 fl (80.0-96.0); MONO # 0.8 10^3/uL (0.0-0.8); MONO % 9.4 % (2.0-8.0); NEUTROPHILS # 6.5 10^3/uL (1.5-8.5); NEUTROPHILS % 76.1 % (36.0-66.0); PLATELET COUNT, AUTOMATED 274 10^3/uL (150-450); RED BLOOD COUNT 4.79 10^6/uL (4.00-5.40); WHITE BLOOD COUNT 8.5 10^3/uL (4.0-10.0)
[2021-06-23 17:00] LABS: ALBUMIN 4.1 GM/DL (3.2-5.2); BILIRUBIN,TOTAL 0.4 MG/DL (0.2-1.0); CALCIUM LEVEL 9.5 MG/DL (8.8-10.2); CREATININE FOR GFR 1.37 MG/DL (0.55-1.30); GLOMERULAR FILTRATION RATE 40.8 (>45); POTASSIUM SERUM 5.1 MEQ/L (3.5-5.1); TOTAL PROTEIN 7.8 GM/DL (6.4-8.2)
== END ==
LOC: M LAB 15:12
PROVIDERS: ATTEND Nurse Practitioner Family
DX: R21 Rash and other nonspecific skin eruption (principal)

== ENCOUNTER → 2021-07-21 | Outpatient (CLI) | payer BC, OTHER ==
[2021-07-21 17:41] LABS: HEMATOCRIT 35.3 % (36.0-47.0); HEMOGLOBIN 11.8 g/dl (12.0-15.5); MEAN CORPUSCULAR HEMOGLOBIN 28.6 pg (27.0-33.0); MEAN CORPUSCULAR HGB CONC 33.4 g/dl (32.0-36.5); MEAN CORPUSCULAR VOLUME 85.7 fl (80.0-96.0); PLATELET COUNT, AUTOMATED 226 10^3/uL (150-450); RED BLOOD COUNT 4.12 10^6/uL (4.00-5.40); WHITE BLOOD COUNT 4.8 10^3/uL (4.0-10.0)
[2021-07-21 17:42] LABS: ALBUMIN 3.8 GM/DL (3.2-5.2); BILIRUBIN,TOTAL 0.5 MG/DL (0.2-1.0); CALCIUM LEVEL 9.5 MG/DL (8.8-10.2); CREATININE FOR GFR 1.1 MG/DL (0.55-1.30); GLOMERULAR FILTRATION RATE 52.6 (>45); POTASSIUM SERUM 4.3 MEQ/L (3.5-5.1); TOTAL PROTEIN 6.7 GM/DL (6.4-8.2)
== END ==
LOC: M PLALAB 14:52
PROVIDERS: ATTEND Nurse Practitioner Family
DX: L93.2 Other local lupus erythematosus (principal)

== ENCOUNTER → 2021-09-23 | Outpatient (CLI) | payer BC, OTHER ==
[2021-09-23 10:44] LABS: HEMATOCRIT 38.6 % (36.0-47.0); HEMOGLOBIN 12.8 g/dl (12.0-15.5); MEAN CORPUSCULAR HEMOGLOBIN 29.7 pg (27.0-33.0); MEAN CORPUSCULAR HGB CONC 33.2 g/dl (32.0-36.5); MEAN CORPUSCULAR VOLUME 89.6 fl (80.0-96.0); PLATELET COUNT, AUTOMATED 205 10^3/uL (150-450); RED BLOOD COUNT 4.31 10^6/uL (4.00-5.40); WHITE BLOOD COUNT 5.1 10^3/uL (4.0-10.0)
[2021-09-23 11:24] LABS: BILIRUBIN,TOTAL 0.4 MG/DL (0.2-1.0); CALCIUM LEVEL 9.5 MG/DL (8.8-10.2); CREATININE FOR GFR 1.15 MG/DL (0.55-1.30); POTASSIUM SERUM 4.2 MEQ/L (3.5-5.1); TOTAL PROTEIN 6.9 GM/DL (6.4-8.2)
== END ==
LOC: M PLALAB 08:07
PROVIDERS: ATTEND Nurse Practitioner Family
DX: L93.2 Other local lupus erythematosus (principal)

== ENCOUNTER → 2021-10-28 | Outpatient (CLI) | payer BC, OTHER | LOC: M WHC 12:29 | PROVIDERS: ATTEND Family Medicine | DX: Z12.31 Encounter for screening mammogram for malignant neoplasm of breast (principal) ==

== ENCOUNTER → 2021-11-14 | Outpatient (CLI) | payer BC, OTHER ==
[2021-11-14 10:34] LABS: BASO % 0.5 % (0.0-1.0); EOS # 0.1 10^3/uL (0.0-0.5); EOS % 2.3 % (0.0-3.0); HEMATOCRIT 38.7 % (36.0-47.0); HEMOGLOBIN 12.8 g/dl (12.0-15.5); LYMPH % 23.7 % (24.0-44.0); MEAN CORPUSCULAR HEMOGLOBIN 29.5 pg (27.0-33.0); MEAN CORPUSCULAR HGB CONC 33.1 g/dl (32.0-36.5); MEAN CORPUSCULAR VOLUME 89.2 fl (80.0-96.0); MONO # 0.4 10^3/uL (0.0-0.8); MONO % 10.1 % (2.0-8.0); NEUTROPHILS # 2.8 10^3/uL (1.5-8.5); NEUTROPHILS % 63.2 % (36.0-66.0); PLATELET COUNT, AUTOMATED 200 10^3/uL (150-450); RED BLOOD COUNT 4.34 10^6/uL (4.00-5.40); WHITE BLOOD COUNT 4.4 10^3/uL (4.0-10.0)
[2021-11-14 10:58] LABS: HEMOGLOBIN A1c 5.5 %
[2021-11-14 11:31] LABS: ALBUMIN 4.2 GM/DL (3.2-5.2); BILIRUBIN,TOTAL 0.7 MG/DL (0.2-1.0); CALCIUM LEVEL 9.1 MG/DL (8.8-10.2); CHOLESTEROL RISK RATIO 3.447 (<5); CREATININE FOR GFR 1.13 MG/DL (0.55-1.30); FREE T4 1.15 NG/DL (0.76-1.46); POTASSIUM SERUM 4.6 MEQ/L (3.5-5.1); THYROID STIMULATING HORMONE 2.69 uIU/ML (0.358-3.740); TOTAL PROTEIN 7.4 GM/DL (6.4-8.2)
[2021-11-14 11:51] LABS: TOTAL 25(OH) VITAMIN D 51.3 NG/ML (30.0-100.0)
== END ==
LOC: M PLALAB 08:12
PROVIDERS: ATTEND Family Medicine
DX: N18.30 Chronic kidney disease, stage 3 unspecified (principal); R73.03 Prediabetes; E78.00 Pure hypercholesterolemia, unspecified; E55.9 Vitamin D deficiency, unspecified

== ENCOUNTER → 2022-02-02 | Outpatient (CLI) | payer BC, OTHER ==
[2022-02-02 14:52] LABS: BASO % 0.2 % (0.0-1.0); EOS # 0.1 10^3/uL (0.0-0.5); EOS % 2.4 % (0.0-3.0); HEMATOCRIT 38.6 % (36.0-47.0); HEMOGLOBIN 12.2 g/dl (12.0-15.5); LYMPH # 0.9 10^3/uL (1.5-5.0); LYMPH % 22.4 % (24.0-44.0); MEAN CORPUSCULAR HEMOGLOBIN 28.4 pg (27.0-33.0); MEAN CORPUSCULAR HGB CONC 31.6 g/dl (32.0-36.5); MONO # 0.4 10^3/uL (0.0-0.8); MONO % 9.2 % (2.0-8.0); NEUTROPHILS # 2.7 10^3/uL (1.5-8.5); NEUTROPHILS % 65.6 % (36.0-66.0); PLATELET COUNT, AUTOMATED 188 10^3/uL (150-450); RED BLOOD COUNT 4.29 10^6/uL (4.00-5.40); WHITE BLOOD COUNT 4.2 10^3/uL (4.0-10.0)
[2022-02-02 15:37] LABS: ERYTHROCYTE SEDIMENTATION RATE 12 mm/hr (0-30)
[2022-02-02 16:03] LABS: ALBUMIN 3.9 GM/DL (3.2-5.2); BILIRUBIN,TOTAL 0.4 MG/DL (0.2-1.0); C REACTIVE PROTEIN QUANTITATIV 0.3 MG/DL (0.00-0.30); CREATININE FOR GFR 1.15 MG/DL (0.55-1.30); POTASSIUM SERUM 4.4 MEQ/L (3.5-5.1); RHEUMATOID FACTOR QUANT 24.5 IU/ML (<15.0); TOTAL PROTEIN 7.5 GM/DL (6.4-8.2); URIC ACID 2.7 MG/DL (2.6-6.0)
== END ==
LOC: M PLALAB 10:32
PROVIDERS: ATTEND Nurse Practitioner Family
DX: R21 Rash and other nonspecific skin eruption (principal)

== ENCOUNTER → 2022-06-14 | Outpatient (CLI) | payer BC, OTHER ==
[2022-06-14 11:49] LABS: BASO % 0.5 % (0.0-1.0); EOS # 0.1 10^3/uL (0.0-0.5); EOS % 3.2 % (0.0-3.0); HEMATOCRIT 38.1 % (36.0-47.0); HEMOGLOBIN 12.4 g/dl (12.0-15.5); LYMPH # 1.1 10^3/uL (1.5-5.0); LYMPH % 24.2 % (24.0-44.0); MEAN CORPUSCULAR HEMOGLOBIN 28.8 pg (27.0-33.0); MEAN CORPUSCULAR HGB CONC 32.5 g/dl (32.0-36.5); MEAN CORPUSCULAR VOLUME 88.4 fl (80.0-96.0); MONO # 0.5 10^3/uL (0.0-0.8); MONO % 11.3 % (2.0-8.0); NEUTROPHILS # 2.6 10^3/uL (1.5-8.5); NEUTROPHILS % 60.6 % (36.0-66.0); PLATELET COUNT, AUTOMATED 217 10^3/uL (150-450); RED BLOOD COUNT 4.31 10^6/uL (4.00-5.40); WHITE BLOOD COUNT 4.3 10^3/uL (4.0-10.0)
[2022-06-14 11:59] LABS: ALBUMIN 3.8 G/DL (3.2-5.2); BILIRUBIN,TOTAL 0.8 MG/DL (0.3-1.2); CHOLESTEROL RISK RATIO 2.11 (<5); CREATININE FOR GFR 1.15 MG/DL (0.55-1.30); FREE T4 0.88 NG/DL (0.89-1.76); GLOMERULAR FILTRATION RATE 49.8 (>45); HDL CHOLESTEROL 74.8 MG/DL (>40); NON-HDL-C 83.2 MG/DL; POTASSIUM SERUM 4.8 MMOL/L (3.5-5.1); THYROID STIMULATING HORMONE 3.151 uIU/ML (0.55-4.78); TOTAL PROTEIN 7.3 G/DL (5.7-8.2)
== END ==
LOC: M PLALAB 08:13
PROVIDERS: ATTEND Family Medicine
DX: I12.9 Hypertensive chronic kidney disease with stage 1 through stage 4 chronic kidney disease, or unspecified chronic kidney disease (principal); N18.9 Chronic kidney disease, unspecified

== ENCOUNTER → 2022-06-14 | Outpatient (CLI) | payer BC, OTHER ==
[2022-06-14 11:54] LABS: PERCENT SATURATION 26.5 % (13.2-45.0)
[2022-06-14 11:56] LABS: FERRITIN 166.3 NG/ML (7.3-270.7)
== END ==
LOC: M PLALAB 08:14
PROVIDERS: ATTEND Nurse Practitioner Family
DX: K21.9 Gastro-esophageal reflux disease without esophagitis (principal)

== ENCOUNTER → 2022-07-10 | Outpatient (REF) | payer OTHER ==
[2022-07-10 13:35] LABS: HEPATITIS B SURFACE ANTIBODY NEGATIVE (POSITIVE)
[2022-07-10 13:47] LABS: HEPATITIS B SURFACE ANTIGEN NEGATIVE (NEGATIVE)
== END ==
LOC: M SFHCRHEU 10:19
PROVIDERS: ATTEND Internal Medicine
DX: R76.8 Other specified abnormal immunological findings in serum (principal)

== ENCOUNTER → 2022-09-18 | Outpatient (REF) | payer OTHER ==
[~2022-09-18] MED LIST changes: -ROSU20TA5 PO; +ROSU20TA61 PO
== END ==
LOC: M SFHCWAGY 13:05
PROVIDERS: ATTEND Nurse Practitioner Family
DX: Z12.72 Encounter for screening for malignant neoplasm of vagina (principal); Z01.419 Encounter for gynecological examination (general) (routine) without abnormal findings; Z77.9 Other contact with and (suspected) exposures hazardous to health; Z12.4 Encounter for screening for malignant neoplasm of cervix

== ENCOUNTER → 2022-12-14 | Outpatient (CLI) | payer BC, OTHER | LOC: M WHC 07:56 | PROVIDERS: ATTEND Family Medicine | DX: Z12.31 Encounter for screening mammogram for malignant neoplasm of breast (principal); R92.8 Other abnormal and inconclusive findings on diagnostic imaging of breast ==

== ENCOUNTER → 2022-12-29 | Outpatient (CLI) | payer BC, OTHER | LOC: M PLARAD 08:56 | PROVIDERS: ATTEND Otolaryngology | DX: H90.42 Sensorineural hearing loss, unilateral, left ear, with unrestricted hearing on the contralateral side (principal); H70.93 Unspecified mastoiditis, bilateral ==

== ENCOUNTER → 2023-01-18 | Outpatient (REF) | payer BC, OTHER, MEDICARE | LOC: M LAB REF 17:24 | PROVIDERS: ATTEND Otolaryngology | DX: R68.2 Dry mouth, unspecified (principal) ==

== ENCOUNTER → 2023-01-29 | Outpatient (CLI) | payer BC, OTHER ==
[2023-01-29 11:59] LABS: APPEARANCE, URINE CLEAR (CLEAR); BACTERIA, URINE AUTO NEGATIVE (NEGATIVE); BILIRUBIN, URINE AUTO NEGATIVE (NEGATIVE); BLOOD, URINE BLOOD NEGATIVE (NEGATIVE); COLOR, URINE STRAW (YELLOW); GLUCOSE, URINE (UA) AUTO NEGATIVE (NEGATIVE); KETONE, URINE AUTO TRACE mg/dL (NEGATIVE); LEUKOCYTE ESTERASE, URINE AUTO NEGATIVE (NEGATIVE); MUCUS, URINE SMALL (NEGATIVE); NITRITE, URINE AUTO NEGATIVE (NEGATIVE); PROTEIN, URINE AUTO NEGATIVE (NEGATIVE); RBC, URINE AUTO 0 /HPF (0-3); SPECIFIC GRAVITY URINE AUTO 1.004 (1.002-1.035); SQUAMOUS EPITHELIAL CELL UR AU 0 /HPF (0-6); UROBILINOGEN, URINE AUTO 0.2 mg/dL (0.0-2.0); WBC, URINE AUTO 0 /HPF (0-3)
[2023-01-29 12:30] LABS: CREATININE,RANDOM URINE 33.6 MG/DL; TOTAL PROTEIN,RANDOM URINE < 6.0 MG/DL (0.0-14.0)
[2023-01-29 12:32] LABS: CALCIUM LEVEL 8.8 MG/DL (8.3-10.6); CREATININE FOR GFR 1.21 MG/DL (0.55-1.30); POTASSIUM SERUM 4.9 MMOL/L (3.5-5.1)
[2023-01-29 12:33] LABS: COMPLEMENT C3 115.8 MG/DL (90.0-170.0); COMPLEMENT C4 37.1 MG/DL (12-36); IMMUNOGLOBULIN A 223.2 MG/DL (40-350); IMMUNOGLOBULIN M 139.5 MG/DL (50-300)
[2023-01-30 18:10] LABS: COMPLEMENT TOTAL (CH50) > 60 U/mL (>41)
== END ==
LOC: M PLALAB 08:03
PROVIDERS: ATTEND Internal Medicine
DX: M35.00 Sjogren syndrome, unspecified (principal)

== ENCOUNTER → 2023-06-22 | Outpatient (CLI) | payer MEDICARE, BC ==
[2023-06-22 10:49] LABS: BASO % 0.6 % (0.0-1.0); EOS # 0.1 10^3/uL (0.0-0.5); EOS % 2.7 % (0.0-3.0); HEMATOCRIT 35.7 % (36.0-47.0); HEMOGLOBIN 11.9 g/dl (12.0-15.5); LYMPH # 1.2 10^3/uL (1.5-5.0); LYMPH % 22.8 % (24.0-44.0); MEAN CORPUSCULAR HGB CONC 33.3 g/dl (32.0-36.5); MEAN CORPUSCULAR VOLUME 86.9 fl (80.0-96.0); MONO # 0.6 10^3/uL (0.0-0.8); MONO % 11.3 % (2.0-8.0); NEUTROPHILS # 3.2 10^3/uL (1.5-8.5); NEUTROPHILS % 62.6 % (36.0-66.0); PLATELET COUNT, AUTOMATED 223 10^3/uL (150-450); RED BLOOD COUNT 4.11 10^6/uL (4.00-5.40); WHITE BLOOD COUNT 5.1 10^3/uL (4.0-10.0)
[2023-06-22 11:14] LABS: ALBUMIN 3.8 G/DL (3.2-5.2); BILIRUBIN,TOTAL 0.6 MG/DL (0.3-1.2); CALCIUM LEVEL 8.8 MG/DL (8.3-10.6); CHOLESTEROL RISK RATIO 2.6 (<5); CREATININE FOR GFR 1.14 MG/DL (0.55-1.30); GLOMERULAR FILTRATION RATE 50.2 (>39); HDL CHOLESTEROL 57.5 MG/DL (>40); LDL CHOLESTEROL 80.7 MG/DL (<100); NON-HDL-C 92.5 MG/DL; POTASSIUM SERUM 4.8 MMOL/L (3.5-5.1); TOTAL PROTEIN 7.1 G/DL (5.7-8.2)
== END ==
LOC: M PLALAB 08:17
PROVIDERS: ATTEND Nurse Practitioner Adult Health
DX: I12.9 Hypertensive chronic kidney disease with stage 1 through stage 4 chronic kidney disease, or unspecified chronic kidney disease (principal); E78.00 Pure hypercholesterolemia, unspecified

== ENCOUNTER → 2023-07-18 | Outpatient (CLI) | payer MEDICARE, BC | LOC: M CARPUL 10:54 | PROVIDERS: ATTEND Internal Medicine | DX: M35.00 Sjogren syndrome, unspecified (principal) ==

== ENCOUNTER → 2023-12-26 | Outpatient (CLI) | payer MEDICARE, BC ==
[~2023-12-26] MED LIST changes: -ROSU20TA61 PO; +ROSU20TA86 PO
[2023-12-26 10:36] LABS: BASO % 0.4 % (0.0-1.0); EOS # 0.2 10^3/uL (0.0-0.5); EOS % 3.1 % (0.0-3.0); HEMATOCRIT 34.8 % (36.0-47.0); HEMOGLOBIN 11.5 g/dl (12.0-15.5); LYMPH # 1.2 10^3/uL (1.5-5.0); LYMPH % 24.6 % (24.0-44.0); MEAN CORPUSCULAR HEMOGLOBIN 28.8 pg (27.0-33.0); MONO # 0.6 10^3/uL (0.0-0.8); MONO % 11.6 % (2.0-8.0); NEUTROPHILS # 2.9 10^3/uL (1.5-8.5); NEUTROPHILS % 59.9 % (36.0-66.0); PLATELET COUNT, AUTOMATED 242 10^3/uL (150-450); WHITE BLOOD COUNT 4.8 10^3/uL (4.0-10.0)
[2023-12-26 10:44] LABS: ALBUMIN 3.8 G/DL (3.2-5.2); BILIRUBIN,TOTAL 0.5 MG/DL (0.3-1.2); CALCIUM LEVEL 8.9 MG/DL (8.3-10.6); CHOLESTEROL RISK RATIO 2.52 (<5); CREATININE FOR GFR 1.39 MG/DL (0.55-1.30); GLOMERULAR FILTRATION RATE 39.9 (>39); HDL CHOLESTEROL 59.4 MG/DL (>40); LDL CHOLESTEROL 77.6 MG/DL (<100); NON-HDL-C 90.6 MG/DL; POTASSIUM SERUM 4.5 MMOL/L (3.5-5.1); THYROID STIMULATING HORMONE 4.456 uIU/ML (0.55-4.78); TOTAL PROTEIN 7.5 G/DL (5.7-8.2)
[2023-12-26 11:01] LABS: FREE T4 1.13 NG/DL (0.89-1.76); TOTAL 25(OH) VITAMIN D 50.9 NG/ML (20.0-100.0)
== END ==
LOC: M PLALAB 07:49
PROVIDERS: ATTEND Nurse Practitioner Adult Health
DX: I12.9 Hypertensive chronic kidney disease with stage 1 through stage 4 chronic kidney disease, or unspecified chronic kidney disease (principal)

== ENCOUNTER → 2024-01-09 | Outpatient (CLI) | payer MEDICARE, BC | LOC: M WHC 12:26 | PROVIDERS: ATTEND Nurse Practitioner Adult Health | DX: Z12.31 Encounter for screening mammogram for malignant neoplasm of breast (principal); M81.0 Age-related osteoporosis without current pathological fracture ==

== ENCOUNTER → 2024-06-24 | Outpatient (REF) | payer MEDICARE, BC ==
[2024-06-24 15:30] LABS: C REACTIVE PROTEIN QUANTITATIV < 0.50 MG/DL (<1.0); COMPLEMENT C3 153.4 MG/DL (90.0-170.0); COMPLEMENT C4 34.4 MG/DL (12-36); IMMUNOGLOBULIN A 228.5 MG/DL (40-350); IMMUNOGLOBULIN G 1953 MG/DL (650-1600)
[2024-06-24 15:31] LABS: IMMUNOGLOBULIN M 199.7 MG/DL (50-300)
[2024-06-24 15:53] LABS: APPEARANCE, URINE CLEAR (CLEAR); BACTERIA, URINE AUTO NEGATIVE (NEGATIVE); BILIRUBIN, URINE AUTO NEGATIVE (NEGATIVE); BLOOD, URINE BLOOD NEGATIVE (NEGATIVE); COLOR, URINE STRAW (YELLOW); GLUCOSE, URINE (UA) AUTO NEGATIVE (NEGATIVE); KETONE, URINE AUTO NEGATIVE (NEGATIVE); LEUKOCYTE ESTERASE, URINE AUTO NEGATIVE (NEGATIVE); NITRITE, URINE AUTO NEGATIVE (NEGATIVE); PROTEIN, URINE AUTO NEGATIVE (NEGATIVE); RBC, URINE AUTO 0 /HPF (0-3); SPECIFIC GRAVITY URINE AUTO 1.008 (1.002-1.035); SQUAMOUS EPITHELIAL CELL UR AU 0 /HPF (0-6); UROBILINOGEN, URINE AUTO 0.2 mg/dL (0.0-2.0); WBC, URINE AUTO 0 /HPF (0-3)
[2024-06-24 16:28] LABS: CREATININE,RANDOM URINE 48.2 MG/DL; TOTAL PROTEIN,RANDOM URINE < 6.0 MG/DL (0.0-14.0)
== END ==
LOC: M SFHCRHEU 10:49
PROVIDERS: ATTEND Internal Medicine
DX: M35.00 Sjogren syndrome, unspecified (principal)

== ENCOUNTER → 2024-06-24 | Outpatient (CLI) | payer MEDICARE, BC ==
[2024-06-24 10:42] LABS: BASO % 0.4 % (0.0-1.0); EOS # 0.2 10^3/uL (0.0-0.5); EOS % 3.1 % (0.0-3.0); HEMATOCRIT 35.6 % (36.0-47.0); HEMOGLOBIN 11.6 g/dl (12.0-15.5); LYMPH # 1.3 10^3/uL (1.5-5.0); LYMPH % 24.4 % (24.0-44.0); MEAN CORPUSCULAR HEMOGLOBIN 28.7 pg (27.0-33.0); MEAN CORPUSCULAR HGB CONC 32.6 g/dl (32.0-36.5); MEAN CORPUSCULAR VOLUME 88.1 fl (80.0-96.0); MONO # 0.6 10^3/uL (0.0-0.8); MONO % 11.8 % (2.0-8.0); NEUTROPHILS # 3.2 10^3/uL (1.5-8.5); NEUTROPHILS % 60.1 % (36.0-66.0); PLATELET COUNT, AUTOMATED 216 10^3/uL (150-450); RED BLOOD COUNT 4.04 10^6/uL (4.00-5.40); WHITE BLOOD COUNT 5.2 10^3/uL (4.0-10.0)
[2024-06-24 11:17] LABS: ALBUMIN 3.7 G/DL (3.2-5.2); BILIRUBIN,TOTAL 0.6 MG/DL (0.3-1.2); CALCIUM LEVEL 9.4 MG/DL (8.3-10.6); CHOLESTEROL RISK RATIO 2.65 (<5); CREATININE FOR GFR 1.4 MG/DL (0.55-1.30); GLOMERULAR FILTRATION RATE 39.5 (>39); HDL CHOLESTEROL 60.7 MG/DL (>40); LDL CHOLESTEROL 87.9 MG/DL (<100); NON-HDL-C 100.3 MG/DL; TOTAL PROTEIN 7.5 G/DL (5.7-8.2)
[2024-06-24 11:19] LABS: TOTAL 25(OH) VITAMIN D 46.9 NG/ML (20.0-100.0)
== END ==
LOC: M PLALAB 07:50
PROVIDERS: ATTEND Nurse Practitioner Adult Health
DX: I12.9 Hypertensive chronic kidney disease with stage 1 through stage 4 chronic kidney disease, or unspecified chronic kidney disease (principal); E55.9 Vitamin D deficiency, unspecified; E78.00 Pure hypercholesterolemia, unspecified

== ENCOUNTER → 2024-12-30 | Outpatient (CLI) | payer MEDICARE, BC ==
[2024-12-30 13:36] LABS: BASO # 0.0 10^3/uL (0.0-0.2); BASO % 0.2 % (0.0-1.0); EOS # 0.2 10^3/uL (0.0-0.5); EOS % 3.0 % (0.0-3.0); LYMPH # 1.0 10^3/uL (1.5-5.0); LYMPH % 19.7 % (24.0-44.0); MONO # 0.5 10^3/uL (0.0-0.8); MONO % 10.5 % (2.0-8.0); NEUTROPHILS # 3.3 10^3/uL (1.5-8.5); NEUTROPHILS % 66.4 % (36.0-66.0); PLATELET COUNT, AUTOMATED 224 10^3/uL (150-450)
[2024-12-30 15:54] LABS: ALT/SGPT 20.0 U/L (7.0-40); AST/SGOT 27.0 U/L (<34); CALCIUM LEVEL 9.4 MG/DL (8.3-10.6); CARBON DIOXIDE LEVEL 28.0 MMOL/L (20-31); CHLORIDE LEVEL 100.0 MMOL/L (98-107); CHOLESTEROL LEVEL 150.0 MG/DL (<200); CHOLESTEROL RISK RATIO 2.51 (<5); CREATININE FOR GFR 1.68 MG/DL (0.55-1.30); GLOMERULAR FILTRATION RATE 32.3 (>39); LDL CHOLESTEROL 78.9 MG/DL (<100); NON-HDL-C 90.3 MG/DL; POTASSIUM SERUM 4.7 MMOL/L (3.5-5.1); SODIUM LEVEL 135.0 MMOL/L (136-145); TRIGLYCERIDES LEVEL 57.0 MG/DL (<150)
[2024-12-30 16:01] LABS: FREE T4 1.0 NG/DL (0.89-1.76)
[2024-12-30 16:02] LABS: TOTAL 25(OH) VITAMIN D 55.8 NG/ML (20.0-100.0)
== END ==
LOC: M PLALAB 09:15
PROVIDERS: ATTEND Nurse Practitioner Adult Health
DX: I12.9 Hypertensive chronic kidney disease with stage 1 through stage 4 chronic kidney disease, or unspecified chronic kidney disease (principal); E78.00 Pure hypercholesterolemia, unspecified; E55.9 Vitamin D deficiency, unspecified; N18.9 Chronic kidney disease, unspecified

== ENCOUNTER → 2025-01-15 | Outpatient (CLI) | payer MEDICARE, BC | LOC: M WHC 08:31 | PROVIDERS: ATTEND Nurse Practitioner Adult Health | DX: Z12.31 Encounter for screening mammogram for malignant neoplasm of breast (principal); R92.323 Mammographic fibroglandular density, bilateral breasts ==